=== PATIENT | female | born 1990 | race African-American/Black ===

== ENCOUNTER 2019-06-25 22:43 | Emergency (ER) | payer SELFPAY ==
[~2019-06-25] VITALS: Ht 162.6 cm; Wt 72.6 kg
[2019-06-26] VITALS: BP 143/96
[2019-06-26] MEDS ORDERED: BUTALB/APAP/CAFEIN 50/325/40MG TABLET. PO ONE (01:00)
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
[2019-06-26] MEDS ORDERED: BUTA1TAB23 PO (01:12)
== END 2019-06-26 01:25 | disposition home or self-care (01) ==
LOC: ER 22:43
DX: S06.0X0A Concussion without loss of consciousness, initial encounter (principal); J45.909 Unspecified asthma, uncomplicated; F31.9 Bipolar disorder, unspecified; Z91.040 Latex allergy status; Y08.89XA Assault by other specified means, initial encounter; Y93.89 Activity, other specified; Y92.89 Other specified places as the place of occurrence of the external cause; Y99.8 Other external cause status
CPT/HCPCS: 99283

== ENCOUNTER 2019-06-28 13:56 | Emergency (ER) | payer SELFPAY ==
[~2019-06-28] VITALS: Ht 193 cm; Wt 68.0 kg
[~2019-06-28 13:56] MED LIST: BUTA1TAB23 PO
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
[2019-06-28 14:57] LABS: BASO % 1 % (0-3); EOS # 0.1 x10^3/uL (0.0-0.7); EOS % 1 % (0-3); HEMATOCRIT 40.7 % (36.0-47.0); HEMOGLOBIN 13.6 g/dL (12.0-15.5); LYMPH # 2.3 x10^3/uL (1.0-4.8); LYMPH % 28 % (24-48); MEAN CORPUSCULAR HEMOGLOBIN 27 pg (25-35); MEAN CORPUSCULAR HGB CONC 33 g/dL (31-37); MEAN CORPUSCULAR VOLUME 82 fL (79-100); MONO # 0.7 x10^3/uL (0.0-1.1); MONO % 9 % (0-9); NEUT % 62 % (31-73); PLATELET COUNT 218 x10^3/uL (140-400); RED BLOOD COUNT 4.98 x10^6/uL (3.50-5.40); RED CELL DISTRIBUTION WIDTH 14.3 % (11.5-14.5); WHITE BLOOD COUNT 8.2 x10^3/uL (4.0-11.0)
[2019-06-28 15:06] LABS: CALCIUM 9.4 mg/dL (8.5-10.1); GFR 78.2; POTASSIUM 3.9 mmol/L (3.5-5.1)
[2019-06-28 15:11] LABS: ALBUMIN 3.5 g/dL (3.4-5.0); ALBUMIN/GLOBULIN RATIO 0.7 (1.0-1.7); TOTAL BILIRUBIN 0.3 mg/dL (0.2-1.0); TOTAL PROTEIN 8.3 g/dL (6.4-8.2)
[2019-06-28 15:19] LABS: FREE T4 1.11 ng/dL (0.76-1.46); THYROID STIM HORMONE (TSH) 1.287 uIU/mL (0.358-3.74)
[2019-06-28 15:52] LABS: BILIRUBIN,URINE SMALL (NEG); CLARITY,URINE CLOUDY; NITRITE,URINE NEGATIVE (NEG); PH,URINE 5.5; PROTEIN,URINE 30 mg/dL (NEG-TRACE)
[2019-06-28 15:56] LABS: COLOR,URINE DK YELLOW
[2019-06-28 15:59] LABS: BACTERIA,URINE FEW /HPF (0-FEW); RBC,URINE 0 /HPF (0-2); SQUAMOUS EPITHELIAL CELL,UR MANY /LPF; WBC,URINE 0 /HPF (0-4)
[2019-06-28 16:01] LABS: AMPHETAMINE/METHAMPHETAMINE NEG (NEG); BARBITURATES POS (NEG); BENZODIAZEPINES NEG (NEG); CANNABINOIDS POS (NEG); COCAINE NEG (NEG); METHADONE NEG (NEG); OPIATES NEG (NEG); PHENCYCLIDINE NEG (NEG)
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
[2019-06-28 17:30] VITALS: BP 102/58
--- NOTE | 2019-06-29 07:51 | EKG ---
[facility] [address] [place] [address] Test Date: 2019-06-28 Test Time: 14:37:04 Pat Name: JUSTO HERNANDEZ Department: Room: Gender: F Notereader: : 1990 Requested By: ARIADNA SWAN Order Number: [id number] Reading MD: Measurements Intervals [place] Rate: 90 P: 56 MO: 154 QRS: 27 QRSD: 74 T: 47 QT: 342 QTc: 422 Interpretive Statements SINUS RHYTHM NORMAL ECG RI6.01 No previous ECG available for comparison
== END 2019-06-28 17:44 | disposition home or self-care (01) ==
LOC: ER 13:56
DX: S09.8XXD Other specified injuries of head, subsequent encounter (principal); J45.909 Unspecified asthma, uncomplicated; F31.9 Bipolar disorder, unspecified; F17.210 Nicotine dependence, cigarettes, uncomplicated; Z91.040 Latex allergy status; Y04.0XXD Assault by unarmed brawl or fight, subsequent encounter
CPT/HCPCS: 36415; 70450; 80053; 80307; 81001; 81025; 84439; 84443; 85025; 93005; 99285; G0480